=== PATIENT | male | born 1990 | race Caucasian/White ===

== ENCOUNTER 2017-06-08 10:58 | Emergency (ER) | payer MEDICARE, MEDICAID ==
[~2017-06-08] VITALS: Ht 167.6 cm; Wt 59.0 kg
[2017-06-08] MEDS ORDERED: SEVE800T8 PO (11:04)
[2017-06-08] MEDS ORDERED: APIX2.5T PO (11:04)
[2017-06-08] MEDS ORDERED: CARV3.1242 PO (11:04)
[2017-06-08] MEDS ORDERED: NEPVIT PO (11:04)
[2017-06-08] MEDS ORDERED: AMLO2.5T45 PO (11:04)
[2017-06-08] MEDS ORDERED: ONDANSETRON HCL 4MG/2ML VIAL IV STA (11:18)
[2017-06-08] MEDS ORDERED: SODIUM CHLORIDE 0.9% 1,000 ML IV ONE (11:18)
[2017-06-08] MEDS ORDERED: MORPHINE SULFATE 4 MG/ML CPJ (NOT FOR IM USE) IV STA (11:18)
[2017-06-08 11:39] LABS: BASOPHILS % 1.3 % (0.0-2.0); EOSINOPHILS % 4.7 % (0.0-5.0); HEMOGLOBIN. 9.7 g/dL (14.0-18.0); LYMPHOCYTES % 23.9 % (20.0-50.0); MEAN CORPUSCULAR HEMOGLOBIN 31.2 pg (28.0-32.0); MEAN CORPUSCULAR VOLUME 92.9 fL (80.0-94.0); MEAN PLATELET VOLUME 7.9 fl (7.4-10.4); MONOCYTES % 6.1 % (2.0-8.0); PLATELET 234 x1000/uL (130-400); RED BLOOD CELL COUNT 3.12 mill/uL (4.7-6.1); RED CELL DISTRIBUTION WIDTH 15.4 % (11.6-14.6)
[2017-06-08 11:45] LABS: CHLORIDE 104 mEq/L (98-107)
[2017-06-08 11:49] LABS: INR 1.1; PARTIAL THROMBOPLASTIN TIME 26.3 sec (23.4-31.0); PROTHROMBIN TIME 11.3 sec (9.4-11.6)
[2017-06-08 11:53] LABS: CARBON DIOXIDE 26 mEq/L (21-32)
[2017-06-08] MEDS ORDERED: IOHEXOL-300 100 ML BOTTLE ONE (13:09)
[2017-06-08] MEDS ORDERED: HYDROCODONE/ACETAMINOPHEN 5/325MG TABLET PO ONE (14:15)
[2017-06-08 15:21] VITALS: BP 118/71
== END 2017-06-08 15:32 | disposition home or self-care (01) ==
LOC: ER 12:08 → CANBEDREQ 06-09 01:41
DX: S39.92XA Unspecified injury of lower back, initial encounter (principal); S29.9XXA Unspecified injury of thorax, initial encounter; Y04.2XXA Assault by strike against or bumped into by another person, initial encounter; Y02.0XXA Assault by pushing or placing victim in front of motor vehicle, initial encounter; Y93.89 Activity, other specified; Y92.098 Other place in other non-institutional residence as the place of occurrence of the external cause; I12.0 Hypertensive chronic kidney disease with stage 5 chronic kidney disease or end stage renal disease; N18.6 End stage renal disease; E11.22 Type 2 diabetes mellitus with diabetic chronic kidney disease; D75.9 Disease of blood and blood-forming organs, unspecified; Z99.2 Dependence on renal dialysis; Z79.01 Long term (current) use of anticoagulants; I44.0 Atrioventricular block, first degree; I51.7 Cardiomegaly; Z90.49 Acquired absence of other specified parts of digestive tract
CPT/HCPCS: 36415; 71010; 71260; 74177; 80053; 85025; 85610; 85730; 86850; 86900; 86901; 93005; 96361; 96374; 96375; 99285; J2270; J2405; Q9967; J7030

== ENCOUNTER 2017-06-11 08:38 | Inpatient (IN) | payer MEDICARE, MEDICAID ==
[~2017-06-11] VITALS: Ht 167.6 cm; Wt 59.0 kg
[~2017-06-11 08:38] MED LIST: AMLO2.5T45 PO; APIX2.5T PO; CARV3.1242 PO; NEPVIT PO; SEVE800T8 PO
[2017-06-11 10:55] LABS: BASOPHILS % 1.2 % (0.0-2.0); EOSINOPHILS % 4.2 % (0.0-5.0); HEMATOCRIT. 31.4 % (42.0-52.0); HEMOGLOBIN. 10.4 g/dL (14.0-18.0); LYMPHOCYTES % 22.7 % (20.0-50.0); MEAN CORPUSCULAR VOLUME 93.8 fL (80.0-94.0); MEAN PLATELET VOLUME 8.9 fl (7.4-10.4); MONOCYTES % 5.9 % (2.0-8.0); PLATELET 318 x1000/uL (130-400); RED BLOOD CELL COUNT 3.34 mill/uL (4.7-6.1); RED CELL DISTRIBUTION WIDTH 15.9 % (11.6-14.6)
[2017-06-11 11:04] LABS: INR 1.1
[2017-06-11 11:13] LABS: CARBON DIOXIDE 28 mEq/L (21-32); CHLORIDE 101 mEq/L (98-107); TROPONIN I 0.03 ng/mL (0.00-0.04)
[2017-06-11] MEDS ORDERED: MORPHINE SULFATE 4 MG/ML CPJ (NOT FOR IM USE) IV ONE (11:45)
[2017-06-11] MEDS ORDERED: ASPIRIN 325MG EC TABLET PO ONE (11:45)
[2017-06-11] MEDS ORDERED: HYDROCODONE/ACETAMINOPHEN 5/325MG TABLET PO PRN (15:45)
[2017-06-11] MEDS ORDERED: DOCUSATE SODIUM 100MG CAPSULE PO PRN (15:45)
[2017-06-11] MEDS ORDERED: ACETAMINOPHEN 325MG TABLET PO PRN (15:45)
[2017-06-11] MEDS ORDERED: CLONIDINE 0.1MG TABLET PO PRN (15:45)
[2017-06-11] MEDS ORDERED: ONDANSETRON HCL 4MG/2ML VIAL IV PRN (15:45)
[2017-06-11 16:21] VITALS: BP 158/97
[2017-06-11] MEDS: MORPHINE SULFATE 2 MG/ML CPJ (NOT FOR IM USE) IV PRN ×2 (16:46→21:52)
[2017-06-11 20:00] VITALS: BP 116/84
[2017-06-11 23:35] LABS: CREATINE KINASE MB FRACTION 1.1 ng/mL (0.5-3.6); TROPONIN I 0.03 ng/mL (0.00-0.04)
[2017-06-12] VITALS: BP 124/86
[2017-06-12] MEDS: MORPHINE SULFATE 2 MG/ML CPJ (NOT FOR IM USE) IV PRN ×5 (03:15→20:41)
[2017-06-12 04:00] VITALS: BP 110/83
[2017-06-12 06:59] LABS: BASOPHILS % 0.7 % (0.0-2.0); EOSINOPHILS % 3.7 % (0.0-5.0); HEMATOCRIT. 27.7 % (42.0-52.0); HEMOGLOBIN. 9.1 g/dL (14.0-18.0); LYMPHOCYTES % 27.1 % (20.0-50.0); MEAN CORPUSCULAR VOLUME 93.6 fL (80.0-94.0); MEAN PLATELET VOLUME 7.7 fl (7.4-10.4); MONOCYTES % 5.1 % (2.0-8.0); NEUTROPHILS % 63.4 % (40.0-76.0); PLATELET 228 x1000/uL (130-400); RED BLOOD CELL COUNT 2.95 mill/uL (4.7-6.1)
[2017-06-12 08:03] LABS: CARBON DIOXIDE 24 mEq/L (21-32); CHLORIDE 101 mEq/L (98-107); CREATINE KINASE 156 IU/L (39-308); CREATINE KINASE MB FRACTION 1.1 ng/mL (0.5-3.6); HDL CHOLESTEROL 55 mg/dL (40-59); LDL CHOLESTEROL 71 mg/dL (5-100); TROPONIN I 0.02 ng/mL (0.00-0.04)
[2017-06-12] MEDS: ASPIRIN 81MG EC TABLET PO SCH (09:46)
[2017-06-12 14:10] LABS: HEPATITIS B SURFACE AB 47.2 mIU/mL
[2017-06-12 14:20] LABS: HEPATITIS B SURFACE ANTIGEN NEGATIVE
[2017-06-12 16:28] VITALS: BP 143/96
[2017-06-12 16:30] VITALS: BP 146/99
[2017-06-12 16:37] VITALS: BP 151/104
[2017-06-12 20:00] VITALS: BP 161/97
[2017-06-12] MEDS ORDERED: EPOETIN ALFA 10000UNITS/ML VIAL SUBCUT SCH ×2 (21:00)
[2017-06-13] VITALS: BP 138/95
[2017-06-13] MEDS: MORPHINE SULFATE 2 MG/ML CPJ (NOT FOR IM USE) IV PRN ×6 (01:07→22:09)
[2017-06-13 06:52] LABS: EOSINOPHILS % 4.9 % (0.0-5.0); HEMATOCRIT. 27.9 % (42.0-52.0); HEMOGLOBIN. 9.3 g/dL (14.0-18.0); LYMPHOCYTES % 27.6 % (20.0-50.0); MEAN CORPUSCULAR HEMOGLOBIN 31.4 pg (28.0-32.0); MEAN CORPUSCULAR VOLUME 94.4 fL (80.0-94.0); MEAN PLATELET VOLUME 7.4 fl (7.4-10.4); NEUTROPHILS % 59.5 % (40.0-76.0); PLATELET 237 x1000/uL (130-400); RED BLOOD CELL COUNT 2.96 mill/uL (4.7-6.1); RED CELL DISTRIBUTION WIDTH 16.3 % (11.6-14.6)
[2017-06-13 08:04] LABS: CARBON DIOXIDE 24 mEq/L (21-32); CHLORIDE 100 mEq/L (98-107)
[2017-06-13 08:08] LABS: TROPONIN I 0.02 ng/mL (0.00-0.04)
[2017-06-13 08:40] VITALS: BP 154/105
[2017-06-13] MEDS: ASPIRIN 81MG EC TABLET PO SCH (09:48)
[2017-06-13 12:00] VITALS: BP 159/106
[2017-06-13 17:02] VITALS: BP 153/98
[2017-06-13 20:00] VITALS: BP 158/105
[2017-06-14] VITALS: BP 146/98
[2017-06-14] MEDS: MORPHINE SULFATE 2 MG/ML CPJ (NOT FOR IM USE) IV PRN ×2 (02:45→07:43)
[2017-06-14] MEDS: ASPIRIN 81MG EC TABLET PO SCH (07:43)
[2017-06-14 08:00] VITALS: BP 152/97
[2017-06-14] MEDS ORDERED: AMLODIPINE 5MG TABLET PO SCH (09:00)
== END 2017-06-14 16:15 | disposition home or self-care (01) | DRG 291 ==
LOC: ER 08:57 → 8WST 11:49 → EDBEDREQ 11:52 → EDBEDREQTM 11:52 → ENRESERV 14:05
PROVIDERS: ADMIT Hospitalist; ATTEND Hospitalist
PROC: 5A1D70Z Performance of Urinary Filtration, Intermittent, Less than 6 Hours Per Day (ICD-10-PCS; principal; 2017-06-12)
PROC: 5A1D70Z Performance of Urinary Filtration, Intermittent, Less than 6 Hours Per Day (ICD-10-PCS; 2017-06-13)
DX: I13.2 Hypertensive heart and chronic kidney disease with heart failure and with stage 5 chronic kidney disease, or end stage renal disease (principal); N18.6 End stage renal disease; I24.9 Acute ischemic heart disease, unspecified; I08.1 Rheumatic disorders of both mitral and tricuspid valves; K76.0 Fatty (change of) liver, not elsewhere classified; D63.8 Anemia in other chronic diseases classified elsewhere; I16.0 Hypertensive urgency; I44.0 Atrioventricular block, first degree; I50.9 Heart failure, unspecified; Z91.19 Patient's noncompliance with other medical treatment and regimen; Z99.2 Dependence on renal dialysis; Z79.899 Other long term (current) drug therapy; Z90.49 Acquired absence of other specified parts of digestive tract
CPT/HCPCS: 36415; 71010; 71260; 74177; 76700; 80053; 80061; 82550; 82553; 83880; 84484; 85025; 85610; 85730; 86706; 86803; 86850; 86900; 87340; 93005; 93306; 96374; 99285; J0885; J2270

== ENCOUNTER 2018-03-06 07:49 | Emergency (ER) | payer MEDICARE, MEDICAID ==
[~2018-03-06] VITALS: Ht 170.2 cm; Wt 69.0 kg
[~2018-03-06 07:49] MED LIST changes: +AMLO10TA80 PO; +ASPI-1159 PO; +CALC667C PO; +PANT40TA4 PO
[2018-03-06] MEDS ORDERED: KETOROLAC 30MG/ML VIAL IV STA (08:06)
[2018-03-06] MEDS ORDERED: ONDANSETRON HCL 4MG/2ML VIAL IV STA (08:06)
[2018-03-06 09:25] LABS: BASOPHILS % 0.6 % (0.0-2.0); EOSINOPHILS % 0.2 % (0.0-5.0); HEMATOCRIT. 37.1 % (42.0-52.0); HEMOGLOBIN. 12.5 g/dL (14.0-18.0); LYMPHOCYTES % 15.6 % (20.0-50.0); MEAN CORPUSCULAR HEMOGLOBIN 32.1 pg (28.0-32.0); MEAN CORPUSCULAR VOLUME 95.3 fL (80.0-94.0); MEAN PLATELET VOLUME 7.7 fl (7.4-10.4); MONOCYTES % 10.2 % (2.0-8.0); NEUTROPHILS % 73.4 % (40.0-76.0); PLATELET 354 x1000/uL (130-400); RED CELL DISTRIBUTION WIDTH 17.1 % (11.6-14.6)
[2018-03-06 09:31] LABS: CHLORIDE 95 mEq/L (98-107); PROTHROMBIN TIME 20.9 sec (9.4-11.6)
[2018-03-06 10:51] VITALS: BP 131/86
== END 2018-03-06 10:52 | disposition home or self-care (01) ==
LOC: ER 08:07
DX: R11.2 Nausea with vomiting, unspecified (principal); R10.9 Unspecified abdominal pain; I12.0 Hypertensive chronic kidney disease with stage 5 chronic kidney disease or end stage renal disease; N18.6 End stage renal disease; Z88.8 Allergy status to other drugs, medicaments and biological substances; Z99.2 Dependence on renal dialysis; Z79.82 Long term (current) use of aspirin; Z90.49 Acquired absence of other specified parts of digestive tract
CPT/HCPCS: 36415; 74176; 80053; 83690; 85025; 85610; 96374; 96375; 99285; J1885; J2405